=== PATIENT | female | born 1990 | race Two or more races ===

== ENCOUNTER 2018-11-13 10:47 | Emergency (ER) | payer SELFPAY ==
[~2018-11-13] VITALS: Ht 160 cm; Wt 79.0 kg
[2018-11-13 11:04] VITALS: BP 105/59
[2018-11-13] MEDS ORDERED: HYDROcodone/APAP 5/325MG 1 TAB TABLET PO ONE (11:30)
--- NOTE | 2018-11-13 11:59 | RAD ---
Limited abdominal ultrasound History: LUMP UPPER RT ABDOMEN Findings: Scanning is performed at the area of concern, demonstrating a 7 x 6 x 5 mm lesion just deep to the skin. This demonstrates heterogeneous echogenicity, mostly hypoechoic. There appears to be a track from this lesion to the skin surface. There is hypervascularity at the margin of the lesion. IMPRESSION: Subcutaneous collection or mass at the area of concern measuring to 7 mm. Considerations include abscess with surface fistula, hematoma or solid neoplasm. Electronically signed by: Matt Parson MD (11/13/2018 11:55 AM) [facility]
[2018-11-13] MEDS ORDERED: HYDR-3164 PO (12:20)
--- NOTE | 2018-11-13 12:21 | PHYS DOC ---
Past Medical History Past Medical History: No Pertinent History Past Surgical History: No Surgical History Alcohol Use: Occasionally Drug Use: None Adult General Chief Complaint Chief Complaint: BREAST PROBLEM HPI HPI Patient is a 28 year old female who presents with 2 weeks of a tender painful lump under her breast where the bra line would rub. Review of Systems Review of Systems Constitutional: Denies fever or chills [] Eyes: Denies change in visual acuity, redness, or eye pain [] HENT: Denies nasal congestion or sore throat [] Respiratory: Denies cough or shortness of breath [] Cardiovascular: No additional information not addressed in HPI [] GI: Denies abdominal pain, nausea, vomiting, bloody stools or diarrhea [] : Denies dysuria or hematuria [] Musculoskeletal: Denies back pain or joint pain [] Integument: Lump under right breast. Denies rash or skin lesions [] Neurologic: Denies headache, focal weakness or sensory changes [] Endocrine: Denies polyuria or polydipsia [] All other systems were reviewed and found to be within normal limits, except as documented in this note. Current Medications Current Medications Current Medications Medications (Trade) Dose Ordered Sig/Raffi Start Time Stop Time Status Last Admin Dose Admin Acetaminophen/ Hydrocodone Bitart (Lortab 5/325) 1 tab 1X ONCE 11/13/18 11:30 11/13/18 11:31 DC 11/13/18 11:38 1 TAB Allergies Allergies Allergies Coded Allergies Type Severity Reaction Last Updated Verified No Known Drug Allergies 11/13/18 No Physical Exam Physical Exam Constitutional: Well developed, well nourished, no acute distress, non-toxic appearance. [] HENT: Normocephalic, atraumatic, bilateral external ears normal, oropharynx moist, no oral exudates, nose normal. [] Eyes: PERRLA, EOMI, conjunctiva normal, no discharge. [] Neck: Normal range of motion, no tenderness, supple, no stridor. [] Cardiovascular:Heart rate regular rhythm, no murmur [] Lungs & Thorax: Bilateral breath sounds clear to auscultation [] Abdomen: Bowel sounds normal, soft, no tenderness, no masses, no pulsatile masses. [] Skin: Lump under right breast. Warm, dry, no erythema, no rash. [] Back: No tenderness, no CVA tenderness. [] Extremities: No tenderness, no cyanosis, no clubbing, ROM intact, no edema. [] Neurologic: Alert and oriented X 3, normal motor function, normal sensory function, no focal deficits noted. [] Psychologic: Affect normal, judgement normal, mood normal. [] Current Patient Data Vital Signs Vital Signs Date Time Temp Pulse Resp B/P (MAP) Pulse Ox O2 Delivery O2 Flow Rate FiO2 11/13/18 11:04 98.8 72 16 105/59 (74) 100 Room Air 98.8 EKG EKG [] Radiology/Procedures Radiology/Procedures [] Impressions: [facility] [address] [place] [address] IMAGING REPORT Signed PATIENT: SANTA ARIAS ACCOUNT: [id number] : 1990 LOCATION: ER AGE: 28 SEX: F EXAM STATUS: REG ER ORD. PHYSICIAN: BERNABE BEASLEY APRN REASON: lump under right breast/ right upper abdomen area PROCEDURE: ABDOMEN LTD Limited abdominal ultrasound History: LUMP UPPER RT ABDOMEN Findings: Scanning is performed at the area of concern, demonstrating a 7 x 6 x 5 mm lesion just deep to the skin. This demonstrates heterogeneous echogenicity, mostly hypoechoic. There appears to be a track from this lesion to the skin surface. There is hypervascularity at the margin of the lesion. IMPRESSION: Subcutaneous collection or mass at the area of concern measuring to 7 mm. Considerations include abscess with surface fistula, hematoma or solid neoplasm. Electronically signed by: Matt Parson MD (11/13/2018 11:55 AM) [facility] DICTATED and SIGNED BY: MATT PARSON MD DATE: 11/13/18 1154 Course & Med Decision Making Course & Med Decision Making Patient is a 28 year old female who presents with 2 weeks of a tender painful lump under her breast where the bra line would rub. Upon examination patient has a right sided under the breast lump that is painful and is in the problem lying area. The lump is the size of a quarter and is nonmobile. There is no redness or signs of infection or drainage from the area. The lump is under the skin and cannot be seen by the naked eye. Vital signs are within normal limits. Patient is alert and oriented. Lung lobes auscultation in all lobes. Ultrasound shows Subcutaneous collection or mass at the area of concern measuring to 7 mm. Considerations include abscess with surface fistula, hematoma or solid neoplasm. I will treat the patient with Keflex antibiotic because of possible abscess in the differential and the ultrasound read. I will refer her to general surgery give her resources for her primary care provider and told to follow up as soon as possible. Dragon Disclaimer Dragon Disclaimer This electronic medical record was generated, in whole or in part, using a voice recognition dictation system. Departure Departure Impression: Primary Impression: Localized skin mass, lump, or swelling Disposition: HOME, SELF-CARE Condition: STABLE Referrals: NO PCP (PCP) Patient Instructions: Medical Screening Exam Additional Instructions: Call general surgery on Wednesday for follow-up. Take medications as prescribed. Scripts Cephalexin (KEFLEX) 500 Mg Capsule 1 CAP PO TID, #21 CAP Prov: BERNABE BEASLEY APRN 11/13/18 Hydrocodone/Apap 5-325 (NORCO 5-325 TABLET) 1 Each Tablet 1 TAB PO PRN Q6HRS PRN for PAIN, #8 TAB 0 Refills Prov: BERNABE BEASLEY APRN 11/13/18 BERNABE BEASLEY APRN Nov 13, 2018 12:21
[2018-11-13] MEDS ORDERED: CEPH-264 PO (12:44)
== END 2018-11-13 13:08 | disposition home or self-care (01) ==
LOC: ER 10:47
DX: R22.2 Localized swelling, mass and lump, trunk (principal)
CPT/HCPCS: 76705; 99284-25